=== PATIENT | female | born 1985 | race Native Hawaiian/Other Pacific Islander ===

== ENCOUNTER 2017-07-04 06:49 | Emergency (ER) | payer OTHER ==
[~2017-07-04] VITALS: Ht 165.1 cm; Wt 72.6 kg
--- NOTE | 2017-07-04 07:09 | NUR ---
Patient walked in to ER c/o needlestick exposure injury. Patient states she was attempting to give an IM injection when the patient moved a causing needlestick injury. To room 4A, BOBBY performed MSE.
--- NOTE | 2017-07-04 07:35 | NUR ---
BOBBY speaking with [facility] , Last Carroll DNP, regarding needlestick protocol for admitted patient.
--- NOTE | 2017-07-04 07:48 | NUR ---
Patient discharged to home in stable conditon. Written and verbal after care instructions given. Patient verbalizes understanding of instructions.
[2017-07-05 12:06] LABS: HEPATITIS B SURFACE AB Non Reactive (.)
== END 2017-07-04 07:49 | disposition home or self-care (01) ==
LOC: ER 06:55
DX: S61.235A Puncture wound without foreign body of left ring finger without damage to nail, initial encounter (principal); W46.0XXA Contact with hypodermic needle, initial encounter; Y93.89 Activity, other specified; Y92.89 Other specified places as the place of occurrence of the external cause; Y99.8 Other external cause status
CPT/HCPCS: 36415; 86704; 86706; 86803; 87806; A4663